=== PATIENT | male | born 1965 | race Caucasian/White ===

== ENCOUNTER 2021-12-06 00:48 | Emergency (ER) | payer SELFPAY ==
[2021-12-06] MEDS ORDERED: Ketorolac 30 MG/ML SDV IVPUSH STA (00:54)
[2021-12-06 01:35] LABS: BLOOD UREA NITROGEN,BUN 9 mg/dL (7.0-18.0); CARBON DIOXIDE,CO2 27.1 mmol/L (21.0-32.0); CHLORIDE,CL 106 mmol/L (98-107); GLUCOSE RANDOM 93 mg/dL (74-106); POTASSIUM,K 3.8 mmol/L (3.5-5.1); SODIUM,NA 143 mmol/L (136-148)
[2021-12-06] MEDS ORDERED: Iopamidol 755 MG/ML 500 ML Multipack Bottle IVPUSH STA (02:11)
== END 2021-12-06 05:42 | disposition home or self-care (01) ==
LOC: MW.ED 00:48
DX: S20.211A Contusion of right front wall of thorax, initial encounter (principal); Y04.0XXA Assault by unarmed brawl or fight, initial encounter
CPT/HCPCS: 36415; 71260; 80053; 80307; 83735; 85025; 93005; 96374; 99284; J1885; Q9967; 99283